=== PATIENT | female | born 1990 | race Asian ===

== ENCOUNTER → 2016-12-09 17:58 | Emergency (ER) | payer OTHER ==
[~2016-12-09 17:58] MED LIST: diPHENhydraMINE PO* 25 MG PO ONE
[2016-12-09 18:31] VITALS: BP 118/72
--- NOTE | 2016-12-09 18:56 | ED ---
Allergic Reaction/Systemic - HPI Summary HPI Summary: 26M presents with bee sting to right pinky finger. [place] the park and got stung by a bee. This is the first time she has been every stung by a bee. She denies any previous anaphylactic reaction to anything. She denies any rash, difficulty swallowing, chest pain, SOB. She denies any swelling of her finger or redness. She denies any n/v. she has not taken anything. - History of Current Complaint Chief Complaint: EDAllergicReaction Time Seen by Provider: 12/09/16 18:36 Pain Intensity: 6 - Allergies/Home Medications Allergies/Adverse Reactions: Allergies Allergy/AdvReac Type Severity Reaction Status Date / Time No Known Allergies Allergy Verified 12/09/16 18:34 PMH/Surg Hx/FS Hx/Imm Hx Endocrine/Hematology History: Denies: Hx Anticoagulant Therapy Cardiovascular History: Denies: Hx Hypertension Infectious Disease History: No Infectious Disease History: Denies: Traveled Outside the [place] in Last 30 Days - Family History Known Family History: Negative: Cardiac Disease - Social History Alcohol Use: None Substance Use Type: Reports: None Smoking Status (MU): Never Smoked Tobacco Review of Systems Negative: Fever Negative: Chest Pain Negative: Shortness Of Breath Positive: Other - bite right pinky finger All Other Systems Reviewed And Are Negative: Yes Physical Exam Triage Information Reviewed: Yes Vital Signs On Initial Exam: Initial Vitals Temp Pulse Resp BP Pulse Ox 98.4 F 67 15 118/72 100 12/09/16 18:28 12/09/16 18:28 12/09/16 18:28 12/09/16 18:28 12/09/16 18:28 Vital Signs Reviewed: Yes Appearance: Positive: Well-Appearing Skin: Positive: Warm, Dry, Other - bit like lesion on right pinky finger Head/Face: Positive: Normal Head/Face Inspection Eyes: Positive: Normal, EOMI, MAISHA, Conjunctiva Clear ENT: Positive: Normal ENT inspection, Pharynx normal, TMs normal Respiratory/Lung Sounds: Positive: Clear to Auscultation, Breath Sounds Present Cardiovascular: Positive: Normal, RRR Abdomen Description: Positive: Nontender, Soft Bowel Sounds: Positive: Present Diagnostics - Vital Signs Vital Signs Temp Pulse Resp BP Pulse Ox 12/09/16 18:31 98.1 F 65 15 118/72 100 12/09/16 18:28 98.4 F 67 15 118/72 100 - Laboratory Lab Statement: Any lab studies that have been ordered have been reviewed, and results considered in the medical decision making process. Allergic Reaction Course/Dx - Course Course Of Treatment: 71M presents with bee sting to right pinky finger. She was in the park and got stung by a bee. This is the first time she has been every stung by a bee. She denies any previous anaphylactic reaction to anything. She denies any rash, difficulty swallowing, chest pain, SOB. She denies any swelling of her finger or redness. She denies any n/v. she has not taken anything. on exam has bite like lesion on right pinky no erythema. no hives. lungs CTA. will give bendaryl although at this time is not necessary. explained reasons to return to ED for. patient understands and agrees with plan. - Diagnoses Differential Diagnosis/HQI/PQRI: Positive: Anaphylaxis, Local Allergic Reaction , Urticaria Provider Diagnoses: Bee sting Discharge - Discharge Plan Condition: Good Disposition: HOME Patient Education Materials: Insect Bite or Sting (ED) Referrals: [facility] [place] PHYSICIAN REFERRAL [Outside] Additional Instructions: Place ice on area Take Benadryl for any itching or swelling every 6 hours Take ibuprofen for pain every 6 hours Return to ED if develop any chest pain, shortness of breath, difficulty swallowing, or any new or worsening symptoms
== END | disposition home or self-care (01) ==
LOC: ED 17:58
DX: T63.441A Toxic effect of venom of bees, accidental (unintentional), initial encounter (principal); Y92.9 Unspecified place or not applicable
CPT/HCPCS: 99281; A9270-GY

== ENCOUNTER 2017-09-29 17:25 | Emergency (ER) | payer OTHER ==
[2017-09-29 18:02] VITALS: BP 115/66
--- NOTE | 2017-09-29 18:08 | UC ---
Knee Pain HPI - History of Current Complaint Chief Complaint: Diego Stated Complaint: KNEE & FOOT INJURIES Time Seen by Provider: 09/29/17 18:05 Hx Last Menstrual Period: 3 wks ago Pain Intensity: 3 - Allergies/Home Medications Allergies/Adverse Reactions: Allergies Allergy/AdvReac Type Severity Reaction Status Date / Time No Known Allergies Allergy Verified 09/29/17 18:02 Home Medications: Home Medications NK [No Home Medications Reported] 09/29/17 [History Confirmed 09/29/17] PMH/Surg Hx/FS Hx/Imm Hx Other History Of: Negative For: Anticoagulant Therapy - Surgical History Surgical History: None - Family History Known Family History: Negative: Cardiac Disease - Social History Alcohol Use: None Substance Use Type: None Smoking Status (MU): Never Smoked Tobacco Physical Exam - Summary Physical Exam Summary: Vital Signs Reviewed: Yes General: well developed, well nourished female sitting in the examining table w/ o any apparent distress Eyes: Positive: Conjunctiva Clear - PERRLA, EOMI, fundi grossly normal ENT: Positive: Normal ENT inspection, Hearing grossly normal, Pharynx normal, TMs normal Neck: Positive: Supple, Nontender, No Lymphadenopathy Respiratory: Positive: Chest nontender, Lungs clear, Normal breath sounds, No respiratory distress Cardiovascular: Positive: RRR, No Murmur, Pulses Normal, Brisk Capillary Refill Abdomen Description: Positive: Nontender, No Organomegaly, Soft. Negative: CVA Tenderness (R), CVA Tenderness (L) Bowel Sounds: Positive: Present Musculoskeletal: Positive: Strength Intact, No Edema, Other: - Knee: Pt is able to bear weight and ambulate with limping. No surface trauma, soft tissue swelling, or obvious effusion. No overlying erythema or warmth. The L knee is without obvious asymmetry or deformity when compared with the R knee. Decreased ROM of LF knee due to pain. No tenderness to palpation of the patella, no effusion or ballottement. No tenderness over the infrapatellar tendon. Point tenderness over the medial joint line, No tenderness over the medial or lateral tibial plateaus. No tenderness over the proximal fibular head, No tenderness, fullness or mass of the popliteal fossa. No quadriceps tenderness. No laxity of the ACL. PCL, MCL, or LCL. no collateral ligament laxity to valgus or varus stress. Negative Leah/Drawer sign. Negative Melani. Distal motor and neurovascular status intact. Neurological Exam: Normal Psychological Exam: Normal Skin Exam: Normal Triage Information Reviewed: Yes Vital Signs: Initial Vital Signs Temp 98.4 F 09/29/17 17:56 Pulse 73 09/29/17 17:56 Resp 12 09/29/17 17:56 BP 115/66 09/29/17 17:56 Pulse Ox 100 09/29/17 17:56 Discharge - Discharge Plan Referrals: [facility] [Primary Care Provider] -
[2017-09-29] MEDS ORDERED: Lidocaine 2.5%/Prilocain 2.5%* 5 GM TUBE TOPICAL ONE (18:41)
--- NOTE | 2017-09-29 18:41 | UC ---
Lower Extremity/Ankle HPI - HPI Summary HPI Summary: 27 y/o female presents to the urgent care c/o falling down on slippery parking lot after parking her car this morning at 0900. Abrasions to left knee and left foot. Went to pharmacy and bought Compound W which patient put on the wound. States pain became worse after applying this medication which is used for warts. Denies fever, chills. Denies PMH. SHe was limping when she walked and had to be assisted by friend to come to the clinic, basically because she felt skin was pulling - History of Current Complaint Chief Complaint: YESSICAkin Stated Complaint: KNEE & FOOT INJURIES Time Seen by Provider: 09/29/17 18:05 Hx Obtained From: Patient Hx Last Menstrual Period: 3 wks ago Onset/Duration: Sudden Onset, Lasting Hours Severity Initially: Mild Severity Currently: Moderate Pain Intensity: 3 Aggravating Factor(s): Standing, Ambulation Alleviating Factor(s): Rest - Allergies/Home Medications Allergies/Adverse Reactions: Allergies Allergy/AdvReac Type Severity Reaction Status Date / Time No Known Allergies Allergy Verified 09/29/17 18:02 PMH/Surg Hx/FS Hx/Imm Hx Other History Of: Negative For: Anticoagulant Therapy - Surgical History Surgical History: None - Family History Known Family History: Negative: Cardiac Disease - Social History Alcohol Use: None Substance Use Type: None Smoking Status (MU): Never Smoked Tobacco Review of Systems Musculoskeletal: Arthralgia All Other Systems Reviewed And Are Negative: Yes Physical Exam Triage Information Reviewed: Yes Appearance: Well-Appearing, No Pain Distress, Well-Nourished Vital Signs: Initial Vital Signs Temp 98.4 F 09/29/17 17:56 Pulse 73 09/29/17 17:56 Resp 12 09/29/17 17:56 BP 115/66 09/29/17 17:56 Pulse Ox 100 09/29/17 17:56 Vital Signs Reviewed: Yes Eyes: Positive: Conjunctiva Clear ENT: Positive: Hearing grossly normal, Pharynx normal Neck: Positive: Supple, Nontender Respiratory: Positive: Chest non-tender Cardiovascular: Positive: Pulses Normal, Brisk Capillary Refill Abdomen Description: Positive: Nontender Bowel Sounds: Positive: Present Musculoskeletal: Positive: Strength Intact, ROM Intact, No Edema Skin Exam: Other - abrassion of skin left knee 3.5x5cm and Abrassion on left first MP joint 1x2cm with white discoloration on borders, and dried blood on it. Lower Extremity Course/Dx - Course Course Of Treatment: Pressure irrigation with NS applied to wound, cleaning of debries was done. xray of knee and foot were normal, start keflex as prescribed for 5 days - Differential Dx/Diagnosis Provider Diagnoses: Abrasion on left knee and foot Discharge - Sign-Out/Discharge Documenting (check all that apply): Discharge/Admit/Transfer - Discharge Plan Condition: Good Disposition: HOME Patient Education Materials: Abrasion (ED), Cephalexin (By mouth) Referrals: [facility] [Primary Care Provider] - - Billing Disposition and Condition Condition: GOOD Disposition: Home
--- NOTE | 2017-09-29 18:44 | RAD ---
INDICATION: Left foot pain COMPARISON: None TECHNIQUE: AP, lateral, and oblique views were obtained. FINDINGS: There is no acute fracture or dislocation. There is either a remote injury about the tarsal navicular or there is an ossicle There is no significant soft tissue swelling. IMPRESSION: NO ACUTE BONY FINDINGS.
--- NOTE | 2017-09-29 18:44 | RAD ---
INDICATION: Left knee pain COMPARISON: None TECHNIQUE: Standing weightbearing AP, lateral, tunnel, and sunrise views were obtained. FINDINGS: The bony structures, joint spaces, and soft tissues are normal for age. IMPRESSION: NEGATIVE EXAMINATION.
[2017-09-29] MEDS ORDERED: Lidocaine/Epineph/Tetraca SOL* (LET solution) 4 ML BTL TOPICAL ONE (18:45)
[2017-09-29] MEDS ORDERED: Cephalexin CAP* 500 MG PO ONE (19:20)
== END 2017-09-29 19:35 | disposition home or self-care (01) ==
LOC: UCEAST 17:25
DX: S80.212A Abrasion, left knee, initial encounter (principal); S90.812A Abrasion, left foot, initial encounter; W01.0XXA Fall on same level from slipping, tripping and stumbling without subsequent striking against object, initial encounter; Y92.481 Parking lot as the place of occurrence of the external cause
CPT/HCPCS: 99213; A9270-GY; G0463

== ENCOUNTER 2019-03-16 19:53 | Emergency (ER) | payer OTHER ==
[2019-03-16 20:04] VITALS: BP 122/79
[2019-03-16] MEDS ORDERED: Meclizine TAB* 12.5 MG PO ONE ×2 (20:25→20:26)
--- NOTE | 2019-03-16 20:31 | UC ---
Dizzy HPI HPI Summary: 29-year-old female comes in with a chief complaint of racing heart dizziness. Started just prior to arrival. Getting a spinning dizziness that is worse with moving her head. It improves when she stops moving her head. When she gets a spinning dizziness she also feels her heart racing. No chest pain. In November 2018 patient had a cardiac EKG stress test for history of palpitations which was considered normal. Patient reports that she's not had spinning dizziness with palpitations in the past. Patient reports one [place] and she started with some headache and dizzy symptoms at that time. No runny nose no fevers no chills no ear pain. She does feel anxious when she has these dizziness and racing heart symptoms. - History Of Current Complaint Chief Complaint: UCGeneralIllness Stated Complaint: DIZZY, RAPID HR Time Seen by Provider: 03/16/19 19:54 Hx Last Menstrual Period: 03/04/19 Pain Intensity: 0 - Allergies/Home Medications Allergies/Adverse Reactions: Allergies Allergy/AdvReac Type Severity Reaction Status Date / Time No Known Allergies Allergy Verified 03/16/19 20:04 PMH/Surg Hx/FS Hx/Imm Hx Previously Healthy: Yes Cardiovascular History: Other - PALPITATIONS Other History Of: Negative For: Anticoagulant Therapy - Surgical History Surgical History: None - Family History Known Family History: Negative: Cardiac Disease - Social History Alcohol Use: None Substance Use Type: None Smoking Status (MU): Never Smoked Tobacco Review of Systems All Other Systems Reviewed And Are Negative: Yes Constitutional: Positive: Other - SEE HPI Eyes: Positive: Negative ENT: Positive: Negative Respiratory: Positive: Negative Cardiovascular: Positive: Palpitations Gastrointestinal: Positive: Negative Motor: Positive: Negative Neurovascular: Positive: Negative Musculoskeletal: Positive: Negative Neurological: Positive: Headache - SEE HPI Psychological: Positive: Anxious Is Patient Immunocompromised?: No Physical Exam Triage Information Reviewed: Yes Appearance: Well-Appearing, No Pain Distress, Well-Nourished Vital Signs: Initial Vital Signs Temp 99.3 F 03/16/19 19:54 Pulse 72 03/16/19 19:54 Resp 16 03/16/19 19:54 BP 122/79 03/16/19 19:54 Pulse Ox 100 03/16/19 19:54 Vital Signs Reviewed: Yes Eyes: Positive: Other: - PERRLA EOMI there is some right beating horizontal nystagmus. ENT: Positive: Pharynx normal, TMs normal Neck: Positive: Supple Respiratory: Positive: Lungs clear, Normal breath sounds, No respiratory distress Cardiovascular: Positive: RRR Musculoskeletal: Positive: Strength Intact, ROM Intact Neurological: Positive: Alert, Muscle Tone Normal Psychological: Positive: Normal Response To Family, Age Appropriate Behavior Skin Exam: Normal Diagnostics - EKG Cardiac Rate: NL - AT 1999 Cardiac Rhythm: Sinus: Normal - 76BPM Ectopy: None ST Segment: Normal Dizzy Course/Dx - Course Course Of Treatment: I discussed the EKG with the patient and her partner. I do not appreciate any irregularity on the EKG and her vital signs. At this time her symptoms are consistent with vertigo. The spinning dizziness and racing heart and feeling anxious all occurred at the same time. The dizziness symptoms were worse with movement of her head. She gets a right beating horizontal nystagmus on examination. In December 2018 she had a normal EKG stress test. Plan is to treat with meclizine 25 mg every 6 hours as needed. I did let the patient and her partner know that if patient got worse with a racing heart feeling lightheaded like she was on a pass out she needed further evaluation emergency Department. Otherwise she'll be following up with her primary care doctor and or her sales representative electric service. - Differential Dx/Diagnosis Provider Diagnosis: Vertigo, Racing heart beat, Dizziness Discharge ED - Sign-Out/Discharge Documenting (check all that apply): Patient Departure All imaging exams completed and their final reports reviewed: No Studies - Discharge Plan Condition: Stable Disposition: HOME Prescriptions: Meclizine HCl [Motion Sickness Relief] 25 mg PO Q6HR PRN #15 tablet PRN Reason: Vertigo Patient Education Materials: Vertigo (ED), Dizziness (ED), Tachycardia (ED) Referrals: Josias Zuleta MD [Primary Care Provider] - Steve Restrepo DO [Medical Doctor] - Additional Instructions: FOLLOW UP WITH YOUR PRIMARY CARE DOCTOR AND LEAD ELECTRICAL ENGINEER, DR RESTREPO. GET REEVALUATED SOONER IF NOT IMPROVED OR GO TO THE EMERGENCY DEPARTMENT IF WORSE; CONTINUED RACING HEART, FEELING LIKE YOU ARE GOING TO PASS OUT, CHEST PAIN, YOU FEEL ILL OR ANY QUESTIONS OR CONCERNS. - Billing Disposition and Condition Condition: STABLE Disposition: Home
== END 2019-03-16 20:41 | disposition home or self-care (01) ==
LOC: UCEAST 19:53
DX: R42 Dizziness and giddiness (principal); R00.2 Palpitations; R51 Headache
CPT/HCPCS: 93005; 99212; A9270-GY; G0463